=== PATIENT | female | born 1990 | race African-American/Black ===

== ENCOUNTER 2017-02-16 11:07 | Inpatient (IN) | payer MEDICAID, OTHER ==
[~2017-02-16] VITALS: Ht 170.2 cm; Wt 69.9 kg
[~2017-02-16 11:07] MED LIST: FERR325T41 PO; FOLI-43 PO; PARO10TA26 PO
[2017-02-16] MEDS ORDERED: SODIUM CHLORIDE 0.9% 1,000 ML IV ONE (13:38)
[2017-02-16] MEDS ORDERED: KETOROLAC 30MG/ML VIAL IV STA (13:38)
[2017-02-16 14:38] LABS: INR 1.2; PROTHROMBIN TIME 12.7 sec
[2017-02-16 14:42] LABS: CARBON DIOXIDE 26 mEq/L (21-32); CHLORIDE 107 mEq/L (98-107); ETHANOL BLOOD < 10 mg/dL
[2017-02-16 14:53] LABS: CLARITY URINE CLEAR (CLEAR); COLOR URINE YELLOW (YELLOW); GLUCOSE URINE NEGATIVE (NEGATIVE); KETONES URINE NEGATIVE (NEGATIVE); LEUKOCYTE ESTERASE URINE TRACE (NEGATIVE); NITRITE URINE NEGATIVE (NEGATIVE); OCCULT BLOOD URINE NEGATIVE (NEGATIVE); PROTEIN URINE NEGATIVE (NEGATIVE); SPECIFIC GRAVITY URINE 1.011 (1.005-1.030)
[2017-02-16 14:59] LABS: BASOPHILS % 1.2 % (0.0-2.0); EOSINOPHILS % 1.2 % (0.0-5.0); HEMATOCRIT. 24.8 % (36.0-48.0); HEMOGLOBIN. 8.7 g/dL (12.0-16.0); LYMPHOCYTES % 23.4 % (20.0-50.0); MEAN CORPUSCULAR VOLUME 88.5 fL (81.0-99.0); MEAN PLATELET VOLUME 10.2 fl (7.4-10.4); MONOCYTES % 12.7 % (2.0-8.0); NEUTROPHILS % 61.5 % (40.0-76.0); PLATELET 220 x1000/uL (130-400); RED CELL DISTRIBUTION WIDTH 20.1 % (11.6-14.6)
[2017-02-16 15:26] LABS: *AMPHETAMINES SCREEN URINE NEGATIVE (NEGATIVE); *BARBITURATES SCREEN URINE NEGATIVE (NEGATIVE); *BENZODIAZEPINES SCREEN URINE NEGATIVE (NEGATIVE); *COCAINE SCREEN URINE NEGATIVE (NEGATIVE); CANNABINOID URINE SCREEN NEGATIVE (NEGATIVE); METHADONE URINE SCREEN NEGATIVE (NEGATIVE); OPIATES URINE SCREEN NEGATIVE (NEGATIVE); PHENCYCLIDINE URINE SCREEN NEGATIVE (NEGATIVE)
[2017-02-16] MEDS ORDERED: MORPHINE SULFATE 4 MG/ML CPJ (NOT FOR IM USE) IV STA (15:28)
[2017-02-16 15:45] LABS: PLATELET ESTIMATE NORMAL
[2017-02-16] MEDS ORDERED: ACETAMINOPHEN 325MG TABLET PO PRN (17:15)
[2017-02-16] MEDS ORDERED: NA PHOS,M-B/NA PHOS,DI-BA ENEMA 118ML PR PRN (17:15)
[2017-02-16] MEDS ORDERED: DOCUSATE SODIUM 100MG CAPSULE PO PRN (17:15)
[2017-02-16] MEDS ORDERED: ZOLPIDEM TARTRATE 5MG TABLET PO PRN (17:15)
[2017-02-16] MEDS ORDERED: TRAMADOL 50MG TABLET PO PRN (17:15)
[2017-02-16] MEDS ORDERED: GUAIFENESIN 200MG/10ML SUGAR FREE UDC PO PRN (17:15)
[2017-02-16] MEDS ORDERED: IPRATROPIUM/ALBUTEROL 0.5-3(2.5)MG/3ML NEB INH PRN (17:15)
[2017-02-16] MEDS ORDERED: MAGNESIUM/ALUMINUM HYDROXIDE/SIMETHICONE 30ML UDC PO PRN (17:15)
[2017-02-16] MEDS ORDERED: NITROGLYCERIN 0.4MG TABLET SL SL PRN (17:15)
[2017-02-16] MEDS ORDERED: CLONIDINE 0.1MG TABLET PO PRN (17:15)
[2017-02-16] MEDS ORDERED: ONDANSETRON HCL 4MG/2ML VIAL IV PRN (17:15)
[2017-02-16] MEDS ORDERED: DIPHENHYDRAMINE 50MG/ML VIAL IV PRN (17:15)
[2017-02-16 18:00] LABS: FOLIC ACID (FOLATE) SERUM 11.6 ng/mL (>5.38)
[2017-02-16] MEDS: MORPHINE SULFATE 2 MG/ML CPJ (NOT FOR IM USE) IV PRN ×2 (18:04→23:31)
[2017-02-16] MEDS: FOLIC ACID/VITAMIN B COMP W-C TABLET PO SCH (18:04)
[2017-02-16] MEDS: SODIUM CHLORIDE 0.9% 1,000 ML IV SCH (18:04)
[2017-02-16 20:00] VITALS: BP 101/52
[2017-02-16 20:24] VITALS: BP 101/52
[2017-02-16] MEDS: KETOROLAC 15MG/ML VIAL IV PRN (21:50)
[2017-02-17] VITALS: BP 104/61
[2017-02-17] MEDS: SODIUM CHLORIDE 0.9% 1,000 ML IV SCH ×4 (02:02→20:01)
[2017-02-17 04:00] VITALS: BP 107/61
[2017-02-17] MEDS: MORPHINE SULFATE 2 MG/ML CPJ (NOT FOR IM USE) IV PRN ×4 (04:25→20:02)
[2017-02-17] MEDS: LORAZEPAM 2MG/ML CPJ IV PRN ×2 (04:52→11:36)
[2017-02-17] MEDS: FOLIC ACID/VITAMIN B COMP W-C TABLET PO SCH (10:21)
[2017-02-17] MEDS: PANTOPRAZOLE SODIUM 40 MG/VIAL IV SCH (10:28)
[2017-02-17] MEDS: CYANOCOBALAMIN 1000MCG/ML VIAL IM SCH (10:40)
[2017-02-17 11:02] LABS: BASOPHILS % 1.7 % (0.0-2.0); EOSINOPHILS % 2.4 % (0.0-5.0); HEMOGLOBIN. 7.2 g/dL (12.0-16.0); LYMPHOCYTES % 28.7 % (20.0-50.0); MEAN CORPUSCULAR VOLUME 85.8 fL (81.0-99.0); MONOCYTES % 13.7 % (2.0-8.0); NEUTROPHILS % 53.5 % (40.0-76.0); RED BLOOD CELL COUNT 2.33 mill/uL (4.2-5.4); RED CELL DISTRIBUTION WIDTH 20.5 % (11.6-14.6)
[2017-02-17 11:22] LABS: MEAN PLATELET VOLUME 9.7 fl (7.4-10.4); PLATELET 177 x1000/uL (130-400)
[2017-02-17 12:00] VITALS: BP 93/83
[2017-02-17] MEDS: KETOROLAC 15MG/ML VIAL IV PRN ×2 (13:59→21:52)
[2017-02-17 16:00] VITALS: BP 100/59
[2017-02-17 20:00] VITALS: BP 105/62
[2017-02-18] VITALS: BP 95/58
[2017-02-18] MEDS: MORPHINE SULFATE 2 MG/ML CPJ (NOT FOR IM USE) IV PRN ×2 (02:45→06:40)
[2017-02-18] MEDS: SODIUM CHLORIDE 0.9% 1,000 ML IV SCH ×2 (03:37→09:46)
[2017-02-18 04:00] VITALS: BP 98/61
[2017-02-18 08:00] VITALS: BP 98/63
[2017-02-18] MEDS: CYANOCOBALAMIN 1000MCG/ML VIAL IM SCH (09:16)
[2017-02-18] MEDS: PANTOPRAZOLE SODIUM 40 MG/VIAL IV SCH (09:16)
[2017-02-18] MEDS: FOLIC ACID/VITAMIN B COMP W-C TABLET PO SCH (09:16)
[2017-02-18] MEDS: KETOROLAC 15MG/ML VIAL IV PRN (09:47)
[2017-02-18 11:29] VITALS: BP 107/68
[2017-02-19 08:16] LABS: CHLAMYDIA TRACHOMATIS NAA Negative (Negative); NEISSERIA GONORRHOEAE NAA Negative (Negative)
== END 2017-02-18 12:15 | disposition home or self-care (01) | DRG 662 ==
LOC: ER 14:43 → 6EST 17:24 → ENRESERV 19:10 → 6EST 02-18 09:34
PROVIDERS: ADMIT Internal Medicine; ATTEND Internal Medicine
DX: D57.00 Hb-SS disease with crisis, unspecified (principal); F32.9 Major depressive disorder, single episode, unspecified; F17.210 Nicotine dependence, cigarettes, uncomplicated; D64.9 Anemia, unspecified; N89.8 Other specified noninflammatory disorders of vagina; Z87.442 Personal history of urinary calculi; Z71.6 Tobacco abuse counseling
CPT/HCPCS: 36415; 80053; 80305; 81001; 81025; 82607; 82746; 83036; 83615; 83690; 85025; 85044; 85610; 87086; 87210; 87491; 87591; 93005; 96361; 96374; 96375; 96376; 99285; C9113; G0482; J1885; J2060; J2270; J2405; J3420; J7030

== ENCOUNTER 2017-04-17 14:52 | Inpatient (IN) | payer SELFPAY ==
[~2017-04-17] VITALS: Ht 170.2 cm; Wt 74.4 kg
[~2017-04-17 14:52] MED LIST changes: +FERR-71 PO; -FERR325T41 PO; -PARO10TA26 PO; +PARO10TA87 PO
[2017-04-17] MEDS ORDERED: MORPHINE SULFATE 4 MG/ML CPJ (NOT FOR IM USE) IV ONE (18:45)
[2017-04-17] MEDS ORDERED: SODIUM CHLORIDE 0.9% 1,000 ML IV ONE (18:45)
[2017-04-17 19:11] LABS: CHLORIDE 108 mEq/L (98-107)
[2017-04-17 19:15] LABS: HCG SCREEN NEGATIVE
[2017-04-17 19:15] LABS: CLARITY URINE CLOUDY (CLEAR); COLOR URINE YELLOW (YELLOW); GLUCOSE URINE NEGATIVE (NEGATIVE); KETONES URINE NEGATIVE (NEGATIVE); LEUKOCYTE ESTERASE URINE NEGATIVE (NEGATIVE); NITRITE URINE NEGATIVE (NEGATIVE); OCCULT BLOOD URINE 2+ (NEGATIVE); PH URINE 6.5 (4.5-8.0); PROTEIN URINE NEGATIVE (NEGATIVE); SPECIFIC GRAVITY URINE 1.011 (1.005-1.030)
[2017-04-17 19:18] LABS: CARBON DIOXIDE 27 mEq/L (21-32); INR 1.3; PROTHROMBIN TIME 13.1 sec (9.4-11.6)
[2017-04-17 19:23] LABS: BASOPHILS % 0.5 % (0.0-2.0); EOSINOPHILS % 2.4 % (0.0-5.0); HEMOGLOBIN. 7.6 g/dL (12.0-16.0); LYMPHOCYTES % 30.5 % (20.0-50.0); MEAN CORPUSCULAR HEMOGLOBIN 30.4 pg (28.0-32.0); MEAN CORPUSCULAR VOLUME 82.5 fL (81.0-99.0); MEAN PLATELET VOLUME 9.7 fl (7.4-10.4); MONOCYTES % 11.9 % (2.0-8.0); NEUTROPHILS % 54.7 % (40.0-76.0); PLATELET 197 x1000/uL (130-400); RED BLOOD CELL COUNT 2.51 mill/uL (4.2-5.4); RED CELL DISTRIBUTION WIDTH 24.8 % (11.6-14.6)
[2017-04-17 19:25] LABS: HEMATOCRIT. 20.7 % (36.0-48.0)
[2017-04-17 19:31] LABS: *AMPHETAMINES SCREEN URINE NEGATIVE (NEGATIVE); *BARBITURATES SCREEN URINE NEGATIVE (NEGATIVE); *BENZODIAZEPINES SCREEN URINE NEGATIVE (NEGATIVE); *COCAINE SCREEN URINE NEGATIVE (NEGATIVE); METHADONE URINE SCREEN NEGATIVE (NEGATIVE); OPIATES URINE SCREEN NEGATIVE (NEGATIVE); PHENCYCLIDINE URINE SCREEN NEGATIVE (NEGATIVE)
[2017-04-17 19:32] LABS: CANNABINOID URINE SCREEN PRESUMTIVE POSITIVE (NEGATIVE)
[2017-04-17] MEDS ORDERED: ONDANSETRON HCL 4MG/2ML VIAL IV ONE (20:15)
[2017-04-17 22:45] VITALS: BP 98/49
[2017-04-18] VITALS (10 sets, daily range): BP systolic 91–107; BP diastolic 41–58
[2017-04-18] MEDS ORDERED: MAGNESIUM/ALUMINUM HYDROXIDE/SIMETHICONE 30ML UDC PO PRN (00:15)
[2017-04-18] MEDS ORDERED: DIPHENHYDRAMINE 50MG/ML VIAL IV PRN (00:15)
[2017-04-18] MEDS ORDERED: MAGNESIUM HYDROXIDE 400MG/5ML 30ML UDC PO PRN (00:15)
[2017-04-18] MEDS ORDERED: CLONIDINE 0.1MG TABLET PO PRN (00:15)
[2017-04-18] MEDS ORDERED: ONDANSETRON HCL 4MG/2ML VIAL IV PRN (00:15)
[2017-04-18] MEDS ORDERED: ACETAMINOPHEN 325MG TABLET PO PRN (00:15)
[2017-04-18] MEDS: MORPHINE SULFATE 4 MG/ML CPJ (NOT FOR IM USE) IV PRN ×5 (00:36→19:55)
[2017-04-18] MEDS: SODIUM CHLORIDE 0.9% 1,000 ML IV SCH ×2 (02:11→17:08)
[2017-04-18] MEDS ORDERED: CYANOCOBALAMIN 1000MCG/ML VIAL IM SCH (03:30)
[2017-04-18 09:06] LABS: MEAN CORPUSCULAR HEMOGLOBIN 30.3 pg (28.0-32.0); MEAN CORPUSCULAR VOLUME 82.9 fL (81.0-99.0); PLATELET 170 x1000/uL (130-400); RED BLOOD CELL COUNT 2.16 mill/uL (4.2-5.4)
[2017-04-18 09:15] LABS: HEMATOCRIT 17.9 % (36.0-48.0); HEMOGLOBIN 6.5 g/dL (12.0-16.0)
[2017-04-18] MEDS: DOCUSATE SODIUM 100MG CAPSULE PO SCH ×2 (09:27→17:08)
[2017-04-18] MEDS: FOLIC ACID 1MG TABLET PO SCH (09:27)
[2017-04-19] VITALS: BP 110/52
[2017-04-19] MEDS: MORPHINE SULFATE 4 MG/ML CPJ (NOT FOR IM USE) IV PRN ×4 (00:30→12:36)
[2017-04-19] MEDS: SODIUM CHLORIDE 0.9% 1,000 ML IV SCH ×3 (03:21→16:09)
[2017-04-19 04:00] VITALS: BP 110/56
[2017-04-19 07:48] LABS: HEMOGLOBIN 8.1 g/dL (12.0-16.0); MEAN CORPUSCULAR HEMOGLOBIN 30.3 pg (28.0-32.0); MEAN CORPUSCULAR VOLUME 83.7 fL (81.0-99.0); PLATELET 173 x1000/uL (130-400); RED BLOOD CELL COUNT 2.66 mill/uL (4.2-5.4); RED CELL DISTRIBUTION WIDTH 22.7 % (11.6-14.6)
[2017-04-19 07:53] LABS: HEMATOCRIT 22.8 % (36.0-48.0)
[2017-04-19 08:00] VITALS: BP 110/60
[2017-04-19] MEDS: DOCUSATE SODIUM 100MG CAPSULE PO SCH (08:26)
[2017-04-19] MEDS: FOLIC ACID 1MG TABLET PO SCH (08:26)
[2017-04-19 12:00] VITALS: BP 101/54
[2017-04-19 15:43] VITALS: BP 101/54
[2017-04-19 16:05] VITALS: BP 97/57
== END 2017-04-19 16:20 | disposition home or self-care (01) | DRG 662 ==
LOC: ER 15:41 → 6EST 20:03 → ENRESERV 20:36 → ER 21:18
PROVIDERS: ADMIT Internal Medicine; ATTEND Internal Medicine
PROC: 30233N1 Transfusion of Nonautologous Red Blood Cells into Peripheral Vein, Percutaneous Approach (ICD-10-PCS; principal; 2017-04-18)
DX: D57.00 Hb-SS disease with crisis, unspecified (principal); Z83.3 Family history of diabetes mellitus; Z72.0 Tobacco use
CPT/HCPCS: 36415; 71010; 80053; 80305; 81001; 83615; 84703; 85025; 85027; 85044; 85610; 85730; 86850; 86900; 86920; 93005; 93970; 96374; 96375; 99285; J2270; J2405; J3420; J7030; J7040; P9016

== ENCOUNTER 2017-09-01 11:59 | Inpatient (IN) | payer SELFPAY ==
[~2017-09-01] VITALS: Ht 322.6 cm; Wt 69.9 kg
[2017-09-01] MEDS ORDERED: HYDROCODONE/ACETAMINOPHEN 5/325MG TABLET PO STA (14:22)
[2017-09-01 14:55] LABS: INR 1.3; PROTHROMBIN TIME 13.4 sec (9.4-11.6)
[2017-09-01] MEDS ORDERED: ONDANSETRON HCL 4MG/2ML VIAL IV ONE (15:00)
[2017-09-01] MEDS ORDERED: SODIUM CHLORIDE 0.9% 1,000 ML IV ONE ×2 (15:00→18:30)
[2017-09-01 15:07] LABS: CHLORIDE 111 mEq/L (98-107)
[2017-09-01 15:09] LABS: CLARITY URINE CLEAR (CLEAR); COLOR URINE YELLOW (YELLOW); KETONES URINE NEGATIVE (NEGATIVE); LEUKOCYTE ESTERASE URINE NEGATIVE (NEGATIVE); NITRITE URINE NEGATIVE (NEGATIVE); OCCULT BLOOD URINE NEGATIVE (NEGATIVE); PROTEIN URINE NEGATIVE (NEGATIVE); SPECIFIC GRAVITY URINE 1.013 (1.005-1.030)
[2017-09-01 15:32] LABS: *AMPHETAMINES SCREEN URINE NEGATIVE (NEGATIVE); *BARBITURATES SCREEN URINE NEGATIVE (NEGATIVE); *BENZODIAZEPINES SCREEN URINE NEGATIVE (NEGATIVE); *COCAINE SCREEN URINE NEGATIVE (NEGATIVE); METHADONE URINE SCREEN NEGATIVE (NEGATIVE); OPIATES URINE SCREEN NEGATIVE (NEGATIVE); PHENCYCLIDINE URINE SCREEN NEGATIVE (NEGATIVE)
[2017-09-01 15:34] LABS: CANNABINOID URINE SCREEN PRESUMTIVE POSITIVE (NEGATIVE)
[2017-09-01 16:15] LABS: HEMATOCRIT. 21.7 % (36.0-48.0); HEMOGLOBIN. 7.7 g/dL (12.0-16.0); MEAN CORPUSCULAR HEMOGLOBIN 30.3 pg (28.0-32.0); MEAN CORPUSCULAR VOLUME 85.2 fL (81.0-99.0); MEAN PLATELET VOLUME 9.8 fl (7.4-10.4); PLATELET 211 x1000/uL (130-400); RED BLOOD CELL COUNT 2.55 mill/uL (4.2-5.4); RED CELL DISTRIBUTION WIDTH 22.4 % (11.6-14.6)
[2017-09-01] MEDS ORDERED: MORPHINE SULFATE 4 MG/ML CPJ (NOT FOR IM USE) IV ONE ×2 (17:00→18:30)
[2017-09-01 17:09] LABS: NUCLEATED RED BLOOD CELLS 1 /100 WBC
[2017-09-01 17:10] LABS: PLATELET ESTIMATE NORMAL
[2017-09-01 22:20] VITALS: BP 100/56
[2017-09-01] MEDS ORDERED: MORPHINE SULFATE 4 MG/ML CPJ (NOT FOR IM USE) IV PRN (22:30)
[2017-09-01] MEDS: SODIUM CHLORIDE 0.9% 1,000 ML IV SCH (23:25)
[2017-09-02] VITALS: BP 100/56
[2017-09-02] MEDS: ZOLPIDEM TARTRATE 5MG TABLET PO SCH ×2 (00:46→21:00)
[2017-09-02] MEDS: HYDROMORPHONE HCL/PF 2MG/ML CPJ IV PRN ×6 (00:47→22:59)
[2017-09-02 04:00] VITALS: BP 100/52
[2017-09-02] MEDS ORDERED: HYDROCODONE/ACETAMINOPHEN 5/325MG TABLET PO PRN (07:45)
[2017-09-02 08:00] VITALS: BP 108/61
[2017-09-02] MEDS ORDERED: FOLIC ACID/VITAMIN B COMP W-C TABLET PO SCH (09:00)
[2017-09-02] MEDS: FOLIC ACID 1MG TABLET PO SCH (09:01)
[2017-09-02 10:43] LABS: CHLORIDE 108 mEq/L (98-107)
[2017-09-02 11:39] LABS: BASOPHILS % 2.2 % (0.0-2.0); EOSINOPHILS % 3.9 % (0.0-5.0); HEMOGLOBIN. 7.3 g/dL (12.0-16.0); LYMPHOCYTES % 30.2 % (20.0-50.0); MEAN CORPUSCULAR HEMOGLOBIN 30.7 pg (28.0-32.0); MEAN CORPUSCULAR VOLUME 85.2 fL (81.0-99.0); MONOCYTES % 14.4 % (2.0-8.0); NEUTROPHILS % 49.3 % (40.0-76.0); RED BLOOD CELL COUNT 2.38 mill/uL (4.2-5.4); RED CELL DISTRIBUTION WIDTH 22.2 % (11.6-14.6)
[2017-09-02 11:48] LABS: HEMATOCRIT. 20.2 % (36.0-48.0)
[2017-09-02 12:00] VITALS: BP 108/63
[2017-09-02] MEDS: SODIUM CHLORIDE 0.9% 1,000 ML IV SCH (12:20)
[2017-09-02 13:19] LABS: PLATELET 166 x1000/uL (130-400)
[2017-09-02] MEDS ORDERED: NICOTINE 7MG PATCH TD SCH (14:00)
[2017-09-02 16:00] VITALS: BP 109/62
[2017-09-02] MEDS: NICOTINE 7MG PATCH TD SCH (16:04)
[2017-09-02 20:00] VITALS: BP 107/62
[2017-09-02] MEDS ORDERED: ZOLPIDEM TARTRATE 5MG TABLET PO SCH (21:00)
[2017-09-03] VITALS (9 sets, daily range): BP systolic 96–133; BP diastolic 50–80
[2017-09-03] MEDS ORDERED: ONDANSETRON HCL 4MG/2ML VIAL IV PRN (00:30)
[2017-09-03] MEDS: HYDROMORPHONE HCL/PF 2MG/ML CPJ IV PRN ×5 (05:01→22:12)
[2017-09-03] MEDS: SODIUM CHLORIDE 0.9% 1,000 ML IV SCH ×3 (05:14→22:06)
[2017-09-03] MEDS: FOLIC ACID 1MG TABLET PO SCH (08:22)
[2017-09-03] MEDS: NICOTINE 7MG PATCH TD SCH (08:24)
[2017-09-03 09:11] LABS: MEAN CORPUSCULAR HEMOGLOBIN 30.8 pg (28.0-32.0); MEAN CORPUSCULAR VOLUME 85.1 fL (81.0-99.0); PLATELET 159 x1000/uL (130-400); RED BLOOD CELL COUNT 2.21 mill/uL (4.2-5.4); RED CELL DISTRIBUTION WIDTH 22.3 % (11.6-14.6)
[2017-09-03 09:14] LABS: HEMATOCRIT 18.8 % (36.0-48.0); HEMOGLOBIN 6.8 g/dL (12.0-16.0)
[2017-09-03 20:27] LABS: BASOPHILS % 1.1 % (0.0-2.0); EOSINOPHILS % 3.5 % (0.0-5.0); HEMATOCRIT. 23.2 % (36.0-48.0); HEMOGLOBIN. 8.4 g/dL (12.0-16.0); LYMPHOCYTES % 27.3 % (20.0-50.0); MEAN CORPUSCULAR VOLUME 85.5 fL (81.0-99.0); MEAN PLATELET VOLUME 9.5 fl (7.4-10.4); MONOCYTES % 15.5 % (2.0-8.0); NEUTROPHILS % 52.6 % (40.0-76.0); PLATELET 176 x1000/uL (130-400); RED BLOOD CELL COUNT 2.72 mill/uL (4.2-5.4)
[2017-09-03] MEDS: ZOLPIDEM TARTRATE 5MG TABLET PO SCH (21:36)
[2017-09-04] VITALS: BP 102/64
[2017-09-04] MEDS: HYDROMORPHONE HCL/PF 2MG/ML CPJ IV PRN ×3 (02:23→11:10)
[2017-09-04 04:00] VITALS: BP 96/51
[2017-09-04 06:55] LABS: BASOPHILS % 1.6 % (0.0-2.0); EOSINOPHILS % 3.8 % (0.0-5.0); HEMATOCRIT. 24.4 % (36.0-48.0); HEMOGLOBIN. 8.8 g/dL (12.0-16.0); LYMPHOCYTES % 31.7 % (20.0-50.0); MEAN CORPUSCULAR VOLUME 85.5 fL (81.0-99.0); MEAN PLATELET VOLUME 9.9 fl (7.4-10.4); MONOCYTES % 14.4 % (2.0-8.0); NEUTROPHILS % 48.5 % (40.0-76.0); RED BLOOD CELL COUNT 2.85 mill/uL (4.2-5.4); RED CELL DISTRIBUTION WIDTH 22.4 % (11.6-14.6)
[2017-09-04 08:01] VITALS: BP 116/58
[2017-09-04] MEDS: FOLIC ACID 1MG TABLET PO SCH (09:19)
[2017-09-04] MEDS: NICOTINE 7MG PATCH TD SCH (09:20)
[2017-09-04 10:02] LABS: PLATELET 196 x1000/uL (130-400)
[2017-09-04 12:00] VITALS: BP 106/50
[2017-09-04] MEDS ORDERED: HYDR-4001 PO (13:08)
[2017-09-04 14:55] VITALS: BP 106/68
== END 2017-09-04 15:35 | disposition home or self-care (01) | DRG 662 ==
LOC: ER 12:41 → 6EST 19:14 → ENRESERV 20:22
PROVIDERS: ADMIT Internal Medicine; ATTEND Internal Medicine
PROC: 30233N1 Transfusion of Nonautologous Red Blood Cells into Peripheral Vein, Percutaneous Approach (ICD-10-PCS; principal; 2017-09-03)
DX: D57.00 Hb-SS disease with crisis, unspecified (principal); K80.20 Calculus of gallbladder without cholecystitis without obstruction; F17.210 Nicotine dependence, cigarettes, uncomplicated
CPT/HCPCS: 36415; 71045; 80048; 80053; 80305; 81003; 81025; 85025; 85027; 85044; 85610; 86850; 86900; 86920; 96374; 96375; 96376; 99285; C1893; J1170; J2270; J2405; J7030; P9016

== ENCOUNTER 2017-10-15 09:47 | Inpatient (IN) | payer SELFPAY ==
[~2017-10-15] VITALS: Ht 170.2 cm; Wt 71.2 kg
[~2017-10-15 09:47] MED LIST changes: -FERR-71 PO; +HYDR-4001 PO; -PARO10TA87 PO
[2017-10-15] MEDS ORDERED: MORPHINE SULFATE 4 MG/ML CPJ (NOT FOR IM USE) IV STA (12:37)
[2017-10-15] MEDS ORDERED: ONDANSETRON HCL 4MG/2ML VIAL IV STA (12:37)
[2017-10-15] MEDS ORDERED: SODIUM CHLORIDE 0.9% 1,000 ML IV ONE (12:37)
[2017-10-15 12:41] LABS: CLARITY URINE CLEAR (CLEAR); COLOR URINE YELLOW (YELLOW); KETONES URINE NEGATIVE (NEGATIVE); LEUKOCYTE ESTERASE URINE TRACE (NEGATIVE); NITRITE URINE NEGATIVE (NEGATIVE); OCCULT BLOOD URINE NEGATIVE (NEGATIVE); PH URINE 5.5 (4.5-8.0); PROTEIN URINE NEGATIVE (NEGATIVE); SPECIFIC GRAVITY URINE 1.014 (1.005-1.030)
[2017-10-15 12:51] LABS: HEMATOCRIT. 22.9 % (36.0-48.0); HEMOGLOBIN. 8.4 g/dL (12.0-16.0); MEAN CORPUSCULAR HEMOGLOBIN 31.9 pg (28.0-32.0); MEAN CORPUSCULAR VOLUME 87.2 fL (81.0-99.0); MEAN PLATELET VOLUME 9.4 fl (7.4-10.4); PLATELET 250 x1000/uL (130-400); RED BLOOD CELL COUNT 2.63 mill/uL (4.2-5.4); RED CELL DISTRIBUTION WIDTH 21.7 % (11.6-14.6)
[2017-10-15 13:01] LABS: HCG SCREEN NEGATIVE
[2017-10-15 13:02] LABS: CHLORIDE 111 mEq/L (98-107)
[2017-10-15 13:25] LABS: NUCLEATED RED BLOOD CELLS 3 /100 WBC; PLATELET ESTIMATE NORMAL
[2017-10-15] MEDS ORDERED: MORPHINE SULFATE 4 MG/ML CPJ (NOT FOR IM USE) IV ONE ×2 (13:45→15:00)
[2017-10-15] MEDS ORDERED: ONDANSETRON HCL 4MG/2ML VIAL IV PRN (15:30)
[2017-10-15] MEDS ORDERED: GUAIFENESIN 200MG/10ML SUGAR FREE UDC PO PRN (15:30)
[2017-10-15] MEDS ORDERED: CLONIDINE 0.1MG TABLET PO PRN (15:30)
[2017-10-15] MEDS ORDERED: DIPHENHYDRAMINE 50MG/ML VIAL IV PRN (15:30)
[2017-10-15] MEDS ORDERED: MAGNESIUM/ALUMINUM HYDROXIDE/SIMETHICONE 30ML UDC PO PRN (15:30)
[2017-10-15] MEDS ORDERED: IPRATROPIUM/ALBUTEROL 0.5-3(2.5)MG/3ML NEB INH PRN (15:30)
[2017-10-15] MEDS ORDERED: ACETAMINOPHEN 325MG TABLET PO PRN (15:30)
[2017-10-15] MEDS ORDERED: LORAZEPAM 0.5MG TABLET PO PRN (15:30)
[2017-10-15] MEDS ORDERED: NA PHOS,M-B/NA PHOS,DI-BA ENEMA 118ML PR PRN (15:30)
[2017-10-15] MEDS ORDERED: DOCUSATE SODIUM 100MG CAPSULE PO PRN (15:30)
[2017-10-15] MEDS ORDERED: NITROGLYCERIN 0.4MG TABLET SL SL PRN (15:30)
[2017-10-15] MEDS: SODIUM CHLORIDE 0.9% 1,000 ML IV SCH ×2 (16:10→23:12)
[2017-10-15 16:22] LABS: TOTAL IRON BINDING CAPACITY 307 ug/dL (250-450)
[2017-10-15 16:53] LABS: FOLIC ACID (FOLATE) SERUM 16.6 ng/mL (>5.38)
[2017-10-15] MEDS: MORPHINE SULFATE 4 MG/ML CPJ (NOT FOR IM USE) IV PRN (21:24)
[2017-10-15] MEDS ORDERED: ZOLPIDEM TARTRATE 5MG TABLET PO PRN (22:51)
[2017-10-15] MEDS: KETOROLAC 15MG/ML VIAL IV PRN (23:07)
[2017-10-15] MEDS: FAMOTIDINE 20MG/2ML VIAL IV SCH (23:07)
[2017-10-16] VITALS (9 sets, daily range): BP systolic 96–120; BP diastolic 54–65
[2017-10-16] MEDS ORDERED: CEFTRIAXONE 1 G PREMIX 50 ML IV SCH
[2017-10-16] MEDS: TRAMADOL 50MG TABLET PO PRN ×2 (00:34→08:46)
[2017-10-16] MEDS: MORPHINE SULFATE 4 MG/ML CPJ (NOT FOR IM USE) IV PRN ×2 (02:54→10:07)
[2017-10-16] MEDS: KETOROLAC 15MG/ML VIAL IV PRN (05:49)
[2017-10-16] MEDS: SODIUM CHLORIDE 0.9% 1,000 ML IV SCH (05:52)
[2017-10-16] MEDS: FAMOTIDINE 20MG/2ML VIAL IV SCH (08:46)
[2017-10-16] MEDS ORDERED: FOLIC ACID/VITAMIN B COMP W-C TABLET PO SCH (09:00)
[2017-10-16 09:42] LABS: BASOPHILS % 0.5 % (0.0-2.0); EOSINOPHILS % 1.5 % (0.0-5.0); HEMATOCRIT. 21.3 % (36.0-48.0); HEMOGLOBIN. 7.6 g/dL (12.0-16.0); LYMPHOCYTES % 32.9 % (20.0-50.0); MEAN CORPUSCULAR HEMOGLOBIN 30.9 pg (28.0-32.0); MONOCYTES % 11.1 % (2.0-8.0); RED BLOOD CELL COUNT 2.45 mill/uL (4.2-5.4)
[2017-10-16 10:10] LABS: CHLORIDE 114 mEq/L (98-107)
[2017-10-16 10:52] LABS: PLATELET 209 x1000/uL (130-400)
[2017-10-16 15:14] LABS: *AMPHETAMINES SCREEN URINE NEGATIVE (NEGATIVE); *BARBITURATES SCREEN URINE NEGATIVE (NEGATIVE); *BENZODIAZEPINES SCREEN URINE NEGATIVE (NEGATIVE); *COCAINE SCREEN URINE NEGATIVE (NEGATIVE); METHADONE URINE SCREEN NEGATIVE (NEGATIVE)
[2017-10-16 15:16] LABS: CANNABINOID URINE SCREEN NEGATIVE (NEGATIVE); OPIATES URINE SCREEN NEGATIVE (NEGATIVE); PHENCYCLIDINE URINE SCREEN NEGATIVE (NEGATIVE)
[2017-10-20 10:06] LABS: HGB A 11.8 % (96.4-98.8); HGB A2 4.6 % (1.8-3.2); HGB F 4.9 % (0.0-2.0); HGB S 78.7 % (0.0); HGB SOLUBILITY Positive (Negative)
== END 2017-10-16 17:00 | disposition home or self-care (01) | DRG 662 ==
LOC: ER 10:36 → EDBEDREQSVC 16:09 → ENRESERV 19:56 → 6WST 19:56
PROVIDERS: ADMIT Internal Medicine; ATTEND Internal Medicine
DX: D57.00 Hb-SS disease with crisis, unspecified (principal); N39.0 Urinary tract infection, site not specified; F12.90 Cannabis use, unspecified, uncomplicated; Z79.899 Other long term (current) drug therapy; Z83.3 Family history of diabetes mellitus; Z84.89 Family history of other specified conditions; Z71.89 Other specified counseling
CPT/HCPCS: 36415; 71045; 80048; 80053; 80305; 81003; 82607; 82746; 83021; 83036; 83540; 83550; 83615; 84703; 85025; 85044; 85660; 93005; 93970; 96361; 96374; 96375; 96376; 99285; J0696; J1885; J2270; J2405; J3490; J7030; J7050

== ENCOUNTER 2017-11-27 15:30 | Inpatient (IN) | payer OTHER, MEDICAID ==
[~2017-11-27] VITALS: Ht 171.4 cm; Wt 71.2 kg
[2017-11-27] MEDS ORDERED: SODIUM CHLORIDE 0.9% 1,000 ML IV ONE (15:45)
[2017-11-27] MEDS ORDERED: KETOROLAC 30MG/ML VIAL IV ONE (15:45)
[2017-11-27 16:19] LABS: CHLORIDE 107 mEq/L (98-107)
[2017-11-27 17:12] LABS: BASOPHILS % 0.9 % (0.0-2.0); EOSINOPHILS % 1.5 % (0.0-5.0); HEMATOCRIT. 21.1 % (36.0-48.0); HEMOGLOBIN. 7.7 g/dL (12.0-16.0); LYMPHOCYTES % 20.7 % (20.0-50.0); MEAN CORPUSCULAR HEMOGLOBIN 31.2 pg (28.0-32.0); MEAN CORPUSCULAR VOLUME 85.7 fL (81.0-99.0); MEAN PLATELET VOLUME 10.1 fl (7.4-10.4); MONOCYTES % 13.3 % (2.0-8.0); NEUTROPHILS % 63.6 % (40.0-76.0); PLATELET 183 x1000/uL (130-400); RED BLOOD CELL COUNT 2.46 mill/uL (4.2-5.4); RED CELL DISTRIBUTION WIDTH 21.7 % (11.6-14.6)
[2017-11-27 18:18] LABS: CLARITY URINE CLEAR (CLEAR); COLOR URINE ORANGE (YELLOW); KETONES URINE NEGATIVE (NEGATIVE); LEUKOCYTE ESTERASE URINE 2+ (NEGATIVE); NITRITE URINE NEGATIVE (NEGATIVE); OCCULT BLOOD URINE TRACE (NEGATIVE); PH URINE 5.5 (4.5-8.0); PROTEIN URINE NEGATIVE (NEGATIVE); SPECIFIC GRAVITY URINE 1.013 (1.005-1.030)
[2017-11-27] MEDS ORDERED: ONDANSETRON HCL 4MG/2ML VIAL IV ONE (20:15)
[2017-11-27] MEDS ORDERED: MORPHINE SULFATE 4 MG/ML CPJ (NOT FOR IM USE) IV ONE (20:15)
[2017-11-27 23:00] VITALS: BP 100/52
[2017-11-28] VITALS: BP 100/52
[2017-11-28] MEDS ORDERED: CLONIDINE 0.1MG TABLET PO PRN (01:15)
[2017-11-28] MEDS ORDERED: DOCUSATE SODIUM 100MG CAPSULE PO PRN (01:15)
[2017-11-28] MEDS ORDERED: GUAIFENESIN 200MG/10ML SUGAR FREE UDC PO PRN (01:15)
[2017-11-28] MEDS ORDERED: DIPHENHYDRAMINE 50MG/ML VIAL IV PRN (01:15)
[2017-11-28] MEDS ORDERED: ACETAMINOPHEN 650MG SUPP PR PRN (01:15)
[2017-11-28] MEDS ORDERED: ACETAMINOPHEN 650MG/20.3ML UDC GT PRN (01:15)
[2017-11-28] MEDS ORDERED: IPRATROPIUM/ALBUTEROL 0.5-3(2.5)MG/3ML NEB INH PRN (01:15)
[2017-11-28] MEDS ORDERED: ONDANSETRON HCL 4MG/2ML VIAL IV PRN ×2 (01:15→07:45)
[2017-11-28] MEDS ORDERED: ACETAMINOPHEN 325MG TABLET PO PRN (01:15)
[2017-11-28] MEDS ORDERED: NA PHOS,M-B/NA PHOS,DI-BA ENEMA 118ML PR PRN (01:15)
[2017-11-28] MEDS ORDERED: HYDROCODONE/ACETAMINOPHEN 5/325MG TABLET PO PRN (01:15)
[2017-11-28] MEDS ORDERED: HYDROCODONE/ACETAMINOPHEN 10/325MG TABLET PO PRN (01:15)
[2017-11-28] MEDS ORDERED: MAGNESIUM/ALUMINUM HYDROXIDE/SIMETHICONE 30ML UDC PO PRN (01:15)
[2017-11-28 04:00] VITALS: BP 111/70
[2017-11-28] MEDS: MORPHINE SULFATE 4 MG/ML CPJ (NOT FOR IM USE) IV PRN ×4 (05:45→19:43)
[2017-11-28 06:50] LABS: CLARITY URINE CLEAR (CLEAR); COLOR URINE YELLOW (YELLOW); KETONES URINE NEGATIVE (NEGATIVE); LEUKOCYTE ESTERASE URINE 1+ (NEGATIVE); NITRITE URINE NEGATIVE (NEGATIVE); OCCULT BLOOD URINE NEGATIVE (NEGATIVE); PH URINE 5.5 (4.5-8.0); PROTEIN URINE NEGATIVE (NEGATIVE); SPECIFIC GRAVITY URINE 1.014 (1.005-1.030)
[2017-11-28] MEDS: SODIUM CHLORIDE 0.9% INJ 3ML FLUSH IVF SCH ×3 (06:54→21:00)
[2017-11-28 07:51] LABS: *AMPHETAMINES SCREEN URINE NEGATIVE (NEGATIVE)
[2017-11-28 07:53] LABS: *BARBITURATES SCREEN URINE NEGATIVE (NEGATIVE)
[2017-11-28 07:54] LABS: *BENZODIAZEPINES SCREEN URINE NEGATIVE (NEGATIVE)
[2017-11-28 07:55] LABS: *COCAINE SCREEN URINE NEGATIVE (NEGATIVE)
[2017-11-28 08:00] VITALS: BP 103/57
[2017-11-28 08:00] LABS: METHADONE URINE SCREEN NEGATIVE (NEGATIVE)
[2017-11-28 08:09] LABS: CANNABINOID URINE SCREEN NEGATIVE (NEGATIVE)
[2017-11-28] MEDS: FOLIC ACID 1MG TABLET PO SCH (08:15)
[2017-11-28] MEDS: SODIUM CHLORIDE 0.9% 1,000 ML IV SCH (08:16)
[2017-11-28 08:27] LABS: PHENCYCLIDINE URINE SCREEN NEGATIVE (NEGATIVE)
[2017-11-28 09:23] LABS: OPIATES URINE SCREEN PRESUMTIVE POSITIVE (NEGATIVE)
[2017-11-28 10:26] LABS: BASOPHILS % 1.4 % (0.0-2.0); EOSINOPHILS % 2.2 % (0.0-5.0); HEMOGLOBIN. 7.3 g/dL (12.0-16.0); LYMPHOCYTES % 41.1 % (20.0-50.0); MEAN CORPUSCULAR VOLUME 86.8 fL (81.0-99.0); MEAN PLATELET VOLUME 10.4 fl (7.4-10.4); MONOCYTES % 10.2 % (2.0-8.0); NEUTROPHILS % 45.1 % (40.0-76.0); PLATELET 184 x1000/uL (130-400); RED BLOOD CELL COUNT 2.27 mill/uL (4.2-5.4); RED CELL DISTRIBUTION WIDTH 21.5 % (11.6-14.6)
[2017-11-28 10:29] LABS: CHLORIDE 111 mEq/L (98-107)
[2017-11-28 10:30] LABS: HEMATOCRIT. 19.7 % (36.0-48.0)
[2017-11-28 12:00] VITALS: BP 120/70
[2017-11-28 16:00] VITALS: BP 104/63
[2017-11-28] MEDS ORDERED: HYDROXYUREA 500MG CAPSULE PO SCH (18:00)
[2017-11-28 20:00] VITALS: BP 95/50
[2017-11-28] MEDS: HYDROXYUREA 500MG CAPSULE PO SCH (20:59)
[2017-11-28] MEDS ORDERED: FAMOTIDINE 20MG TABLET PO SCH (21:00)
[2017-11-29] VITALS: BP 101/53
[2017-11-29] MEDS: MORPHINE SULFATE 4 MG/ML CPJ (NOT FOR IM USE) IV PRN ×2 (00:04→05:08)
[2017-11-29] MEDS: SODIUM CHLORIDE 0.9% 1,000 ML IV SCH ×3 (00:06→15:13)
[2017-11-29 04:00] VITALS: BP_SYST 106; BP_SYST 108; BP_DIAS 46; BP_DIAS 53
[2017-11-29] MEDS: SODIUM CHLORIDE 0.9% INJ 3ML FLUSH IVF SCH ×2 (05:09→13:04)
[2017-11-29 07:04] LABS: MEAN CORPUSCULAR VOLUME 86.8 fL (81.0-99.0); MEAN PLATELET VOLUME 10.4 fl (7.4-10.4); PLATELET 177 x1000/uL (130-400); RED BLOOD CELL COUNT 2.25 mill/uL (4.2-5.4); RED CELL DISTRIBUTION WIDTH 19.6 % (11.6-14.6)
[2017-11-29 07:07] LABS: CHLORIDE 109 mEq/L (98-107)
[2017-11-29 07:27] LABS: LDL CHOLESTEROL 70 mg/dL (5-100)
[2017-11-29 07:28] LABS: HDL CHOLESTEROL 32 mg/dL (40-59)
[2017-11-29 08:00] VITALS: BP 93/43
[2017-11-29] MEDS: FOLIC ACID 1MG TABLET PO SCH (08:35)
[2017-11-29] MEDS: HYDROXYUREA 500MG CAPSULE PO SCH (08:36)
[2017-11-29 10:40] LABS: MEAN CORPUSCULAR HEMOGLOBIN 31.1 pg (28.0-32.0)
[2017-11-29 10:44] LABS: HEMATOCRIT. 19.5 % (36.0-48.0)
[2017-11-29 12:00] VITALS: BP 104/46
[2017-11-29 13:40] LABS: NUCLEATED RED BLOOD CELLS 1 /100 WBC; PLATELET ESTIMATE NORMAL
[2017-11-29 16:00] VITALS: BP 108/53
[2017-11-29 17:24] VITALS: BP 108/53
== END 2017-11-29 17:36 | disposition home or self-care (01) | DRG 662 ==
LOC: ER 17:36 → EDBEDREQ 21:43 → 6EST 21:51 → EDBEDREQ 21:53 → ENRESERV 21:53
PROVIDERS: ADMIT Family Medicine; ATTEND Family Medicine
DX: D57.00 Hb-SS disease with crisis, unspecified (principal); E86.0 Dehydration; D63.8 Anemia in other chronic diseases classified elsewhere; Z60.2 Problems related to living alone; Z79.899 Other long term (current) drug therapy
CPT/HCPCS: 36415; 71045; 80053; 80061; 80305; 81003; 83615; 85025; 85044; 85660; 86850; 86900; 86920; 87086; 93005; 93306; 96361; 96374; 96375; 99285; J1885; J2270; J2405; J7030

== ENCOUNTER 2018-10-05 16:00 | Emergency (ER) | payer MEDICAID ==
[~2018-10-05] VITALS: Ht 170.2 cm; Wt 77.0 kg
[2018-10-05] MEDS ORDERED: FAMOTIDINE 20MG TABLET PO ONE (17:00)
[2018-10-05] MEDS ORDERED: PREDNISONE 20MG TABLET PO ONE (17:00)
[2018-10-05] MEDS ORDERED: DIPHENHYDRAMINE 50MG CAPSULE PO ONE (17:00)
[2018-10-05 18:03] VITALS: BP 115/74
== END 2018-10-05 18:07 | disposition home or self-care (01) ==
LOC: ER 16:00
DX: L50.0 Allergic urticaria (principal); T45.0X5A Adverse effect of antiallergic and antiemetic drugs, initial encounter; Y92.89 Other specified places as the place of occurrence of the external cause; K80.50 Calculus of bile duct without cholangitis or cholecystitis without obstruction; D57.1 Sickle-cell disease without crisis
CPT/HCPCS: 81025; 99283; J7512; Q0163

== ENCOUNTER 2020-02-08 19:37 | Emergency (ER) | payer OTHER, MEDICAID ==
[~2020-02-08] VITALS: Ht 167.6 cm; Wt 89.0 kg
[2020-02-08] MEDS ORDERED: KETOROLAC 30MG/ML VIAL IM ONE (20:45)
[2020-02-08 22:17] VITALS: BP 115/65
== END 2020-02-08 22:07 | disposition home or self-care (01) ==
LOC: ER 19:37
DX: S46.912A Strain of unspecified muscle, fascia and tendon at shoulder and upper arm level, left arm, initial encounter (principal); M54.5 Low back pain; R51 Headache; D57.1 Sickle-cell disease without crisis; Z79.899 Other long term (current) drug therapy; Z87.19 Personal history of other diseases of the digestive system; Z88.6 Allergy status to analgesic agent; V49.88XA Car occupant (driver) (passenger) injured in other specified transport accidents, initial encounter; Y93.9 Activity, unspecified; Y92.89 Other specified places as the place of occurrence of the external cause; Y99.8 Other external cause status
CPT/HCPCS: 70450; 73030; 93005; 96372; 99285; J1885

== ENCOUNTER 2021-07-09 06:14 | Emergency (ER) | payer OTHER, MEDICAID ==
[~2021-07-09] VITALS: Ht 170.2 cm; Wt 98.0 kg
[2021-07-09] MEDS ORDERED: MORPHINE SULFATE 4 MG/ML CPJ (NOT FOR IM USE) IV ONE ×2 (06:45→08:15)
[2021-07-09] MEDS ORDERED: SODIUM CHLORIDE 0.9% 1,000 ML IV ONE (06:45)
[2021-07-09] MEDS ORDERED: DIPHENHYDRAMINE 50MG/ML VIAL IV ONE (06:45)
[2021-07-09 06:57] LABS: CHLORIDE 111 mEq/L (98-107)
[2021-07-09 07:10] LABS: BASOPHILS % 0.9 % (0.0-2.0); EOSINOPHILS % 0.3 % (0.0-5.0); HEMATOCRIT. 24.8 % (36.0-48.0); HEMOGLOBIN. 8.4 g/dL (12.0-16.0); LYMPHOCYTES % 41.4 % (20.0-50.0); MEAN CORPUSCULAR HEMOGLOBIN 37.9 pg (28.0-32.0); MEAN CORPUSCULAR VOLUME 112.1 fL (81.0-99.0); MEAN PLATELET VOLUME 8.9 fl (7.4-10.4); MONOCYTES % 4.8 % (2.0-8.0); NEUTROPHILS % 52.6 % (40.0-76.0); PLATELET 260 x1000/uL (130-400); RED BLOOD CELL COUNT 2.22 mill/uL (4.2-5.4); RED CELL DISTRIBUTION WIDTH 17.9 % (11.6-14.6)
[2021-07-09 07:30] LABS: CLARITY URINE CLOUDY (CLEAR); COLOR URINE YELLOW (YELLOW); KETONES URINE NEGATIVE (NEGATIVE); LEUKOCYTE ESTERASE URINE NEGATIVE (NEGATIVE); NITRITE URINE NEGATIVE (NEGATIVE); OCCULT BLOOD URINE NEGATIVE (NEGATIVE); PROTEIN URINE NEGATIVE (NEGATIVE); SPECIFIC GRAVITY URINE 1.008 (1.005-1.030)
[2021-07-09 07:52] LABS: PLATELET ESTIMATE NORMAL
[2021-07-09 10:30] VITALS: BP 110/60
[2021-07-09] MEDS ORDERED: HYDR-4001 PO (10:32)
== END 2021-07-09 10:45 | disposition home or self-care (01) ==
LOC: ER 06:14
DX: D57.818 Other sickle-cell disorders with crisis with other specified complication (principal); M79.605 Pain in left leg; M79.604 Pain in right leg
CPT/HCPCS: 36415; 71045; 80053; 81003; 85025; 85044; 96361; 96374; 96375; 96376; 99284; J1200; J2270; J7030

== ENCOUNTER 2021-08-15 15:26 | Emergency (ER) | payer MEDICAID, OTHER ==
[~2021-08-15] VITALS: Ht 170.2 cm; Wt 97.0 kg
[2021-08-15 16:20] LABS: BASOPHILS % 0.4 % (0.0-2.0); EOSINOPHILS % 0.3 % (0.0-5.0); HEMOGLOBIN. 8.9 g/dL (12.0-16.0); LYMPHOCYTES % 29.4 % (20.0-50.0); MEAN CORPUSCULAR VOLUME 110.5 fL (81.0-99.0); MONOCYTES % 6.9 % (2.0-8.0); PLATELET 269 x1000/uL (130-400); RED BLOOD CELL COUNT 2.35 mill/uL (4.2-5.4); RED CELL DISTRIBUTION WIDTH 16.4 % (11.6-14.6)
[2021-08-15 16:25] LABS: CHLORIDE 109 mEq/L (98-107)
[2021-08-15 16:27] LABS: HCG SCREEN NEGATIVE
[2021-08-15 16:43] LABS: PLATELET ESTIMATE NORMAL
[2021-08-15] MEDS ORDERED: HYDROCODONE/ACETAMINOPHEN 5/325MG TABLET PO ONE (20:00)
[2021-08-15 20:11] VITALS: BP 106/42
[2021-08-15] MEDS ORDERED: HYDR-4001 MT (20:54)
[2021-08-15] MEDS ORDERED: IBUP-2028 MT (20:54)
== END 2021-08-15 21:03 | disposition home or self-care (01) ==
LOC: ER 15:26
DX: D57.00 Hb-SS disease with crisis, unspecified (principal); M54.59 Other low back pain; M79.605 Pain in left leg; M79.604 Pain in right leg
CPT/HCPCS: 36415; 80053; 84703; 85025; 85044; 99283